=== PATIENT | male | born 1995 | race Caucasian/White ===

== ENCOUNTER 2018-12-29 16:47 | Emergency (ER) | payer OTHER ==
[~2018-12-29] VITALS: Ht 180.3 cm; Wt 117.9 kg
[2018-12-29] MEDS ORDERED: BACTRIM DS TAB1 EAC1 PO (17:11)
[2018-12-29] MEDS ORDERED: KEFLEX500 M1 PO (17:11)
[2018-12-29 17:20] VITALS: BP 130/73
== END 2018-12-29 17:21 | disposition home or self-care (01) ==
LOC: M.ERS 16:47
DX: L03.116 Cellulitis of left lower limb (principal); L03.115 Cellulitis of right lower limb